=== PATIENT | male | born 1950 | race Caucasian/White ===

== ENCOUNTER 2018-06-20 13:11 | Observation (INO) ==
--- NOTE | 2018-06-20 12:53 | Anesthesia Evaluation PreOp ---
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: Other (R caroid stenosis) Other Medical History: Other (prostate ca) Anesthesia History: No Prior Anesthetic Complications, Past Anesthesia (Rohit Ing hernia repair, prostate bx) Alcohol Use: none Drug use: none Medications and Allergies Bicalutamide [Casodex] 50 mg PO DAILY 30 Days #30 tablet 05/27/18 [Rx] Hydrochlorothiazide [Microzide] 12.5 mg PO DAILY #30 capsule 06/06/18 [Rx] Allergy/AdvReac Type Severity Reaction Status Date / Time tamsulosin AdvReac Dizziness Verified 06/20/18 10:02 - Meds/Allergy Pre-op Review Medications Reviewed: Yes Allergies Reviewed: Yes Beta Blockers on Current Med List: No Anesthesia Results - Labs Laboratory Tests 06/06/18 06/06/18 15:22 15:22 WBC 4.4 Hgb 12.9 Hct 37.7 Plt Count 197 Sodium 138 Potassium 4.1 Chloride 104 Carbon Dioxide 27 BUN 22 Creatinine 1.06 Glucose 102 - Imaging EKG: report reviewed (SINUS RHYTHM RIGHT BUNDLE BRANCH BLOCK Electronically Signed On 06-17-2018 7:17:10 EST by Spenser Kaiser) Anesthesia Exam O2 Sat Height 1.73 m Weight 66.678 kg O2 Sat by Pulse Oximetry 99 Vital Signs Temp Pulse Resp BP Pulse Ox 98.4 F 76 18 127/82 99 06/20/18 13:25 06/20/18 13:25 06/20/18 13:25 06/20/18 13:25 06/20/18 13:25 Height: 1.73m Weight: 66kg NPO (# of Hours): >8 - HEENT Pupil (Motor): Pupils equal, EOMI Mallampati: II Teeth: Edentulous Denture Type: Upper: Complete Oral Opening: Greater than 3 - MARBLE MECH[employer]IC HELPER LOC: Oriented [employer]BLE MECH[employer]IC HELPER Motor: Normal RUE, Normal LUE, Normal RLE, Normal LLE, Normal Face [employer]BLE ME[employer]IC HELPER Sensory: Normal: RUE, LUE, RLE, LLE, Face - Cardiac Rhythm: Regular - Pulmonary Breath Sounds: bilateral Clear Respiratory Effort: Symmetrical Anesthesia Assess/Plan ASA Score: 3 (prostate ca, HTN) Level of consciousness: Cooperative Anesthetic Plan: General Monitoring Plan: Standard Monitors Recovery Plan: PACU
[~2018-06-20 13:11] MED LIST: Acetaminophen IV 1,000 MG/100 ML INFUS..BTL IVPB ONE
[2018-06-20] MEDS ORDERED: Ondansetron 4 MG/2 ML VIAL IVP ONE (13:52)
[2018-06-20] MEDS ORDERED: *HR* Meperidine 25 MG/ML SYRINGE IVP PRN (13:52)
[2018-06-20] MEDS ORDERED: *HR* OxyCODONE Immed Rel 5 MG TABLET PO PRN ×2 (13:52→17:55)
[2018-06-20] MEDS ORDERED: *HR* HYDROmorphone (PF) 1 MG/ML SYRINGE IVP PRN (13:52)
[2018-06-20] MEDS ORDERED: CeFAZolin Syr 2,000MG/20 ML 2,000 MG/20 ML SYRINGE IVPB ONE (13:53)
[2018-06-20] MEDS ORDERED: Ringers Solution, Lactated 1,000 ML IVC SCH (14:00)
[2018-06-20] MEDS ORDERED: Lidocaine -MPF 2% 2 ML VIAL ONE (15:31)
[2018-06-20] MEDS ORDERED: *HR* FentaNYL (PF) 100 MCG/2 ML VIAL ONE ×2 (15:31→16:54)
[2018-06-20] MEDS ORDERED: *HR* Propofol 200 MG/20 ML VIAL IVP ONE (15:31)
--- NOTE | 2018-06-20 15:36 | History & Physical Report ---
Date of Encounter: 06/20/18 Time of Encounter: 15:35 24 Hour HP Update - Instructions Instructions: If the History and Physical is less than 30 days old and was completed prior to A.M. admission and or procedure and has NOT been updated on calendar day of procedure please complete this update prior to performing procedure. - Update Patient reports changes in Medical Condition: No Changes in examination, assessment, or condition: Yes Changes in Medication: No Preop tests/diagnostics Reviewed: Yes Surgery Remains Indicated: Yes Consent for Planned Operative Procedure(s) Verified: Yes Additions to current History and Physical: Small scrotal abscess seen. We will do an incision and drainage of it. - Pre-Operative Checklist Preoperative Checklist Indicated: Yes Prophylactic Antibiotic Ordered: Yes Home Medications Include Beta Corrina: No Is VTE Prophylaxis Indicated?: Yes
[2018-06-20] MEDS ORDERED: Dexamethasone 4 MG/ML VIAL ONE (16:00)
[2018-06-20] MEDS ORDERED: Ondansetron 4 MG/2 ML VIAL ONE (16:00)
[2018-06-20] MEDS ORDERED: EPHEDrine 50 MG/ML VIAL ONE (16:04)
--- NOTE | 2018-06-20 17:19 | Operative Note ---
Date of procedure: 06/20/18 Pre-op diagnosis: Urinary retention, prostate cancer, scrotal abscess Post-op diagnosis: same Procedure: Transurethral resection of prostate Incision and drainage of scrotal abscess Implants: 24-Israeli three-way catheter Complications: None Anesthesia: MELIDA Surgeon: Nathan Monzon Was there an escrow assistant present: No Estimated blood loss (cc): 50 Specimen: prostate chips Condition: stable Disposition: PACU Procedure in Detail: INDICATIONS: Junaid is a 67 year old gentleman, who has urinary retention and prostate cancer. Today he mentioned having developed an abscess in the right hemiscrotum. He is a very elevated PSA. Staging workup was negative for metastatic disease. He has elected for radiation therapy. He wished undergo a transurethral resection of prostate to try to get out of urinary retention. He would also like to have his abscess drained. He is aware of the risks of procedure including, but not limited to, bleeding, infection, injury to other structures, need for further procedures, incomplete bladder emptying, bladder neck contracture, urethral stricture, urinary incontinence, retrograde ejaculation, erectile dysfunction, and the risk of anesthesia. He is willing to proceed. DESCRIPTION OF PROCEDURE: After informed consent was obtained, the patient was brought back to the operating room and placed in supine position. Time-out was performed. General anesthesia was then administered and a laryngeal mask airway was placed. He was then placed in lithotomy position. His genitalia were prepped and draped in usual sterile fashion. The resector sheath was then introduced using the visual obturator to the urethra. The prostate showed lateral lobe hyperplasia. There was some enlargement of the median lobe. The ureteral orifices were in the normal orthotopic position. There is no bladder tumor. There were 2+ trabeculations. The resecting loop was then introduced. The median lobe was taken down using electrocautery down to the level of the verumontanum. I then turned my attention to the left lateral lobe and this was resected away. Attention was then turned to the right lobe and this was resected away. I did perform a small amount of resection anteriorly as well. Once adequate resection was achieved, I then achieved hemostasis with electrocautery. At the distal aspect of the prostate along the left side near the verumontanum there appeared to be an extensive area of prostate cancer. There was papillary growth which expressed out of the area of resection. This was difficult to cauterize given the papillary nature. I did insert the button electrode and liberally cauterized this area. Hemostasis seemed to be adequate, but the resection bed still was somewhat oozy. I irrigated out the TURP chips. I then confirmed hemostasis again using the button. Once hemostasis was adequate, I removed the scope. The verumontanum and ureteral orifices were free of injury and left intact. A 24-Israeli three-way catheter was then placed, 45 mL was instilled in the balloon. The catheter was left on mild traction. Fast continuous bladder irrigation was started. I then applied new gloves and made an incision in the right hemiscrotum where the abscess was. There was a minimal amount of pus. The wound was packed with a quarter inch packing strip. The patient was then awakened from general anesthesia, brought to recovery room in good condition. All sponge, needle, and instrument counts were correct.
--- NOTE | 2018-06-20 17:42 | Anesthesia Evaluation Post Op ---
Date of Encounter: 06/20/18 Time of Encounter: 17:40 - Vital Signs Vital Signs: Vital Signs/O2 Sat, Most Current Temp Pulse Resp BP Pulse Ox 97.9 F 77 14 139/90 98 06/20/18 17:13 06/20/18 17:33 06/20/18 17:33 06/20/18 17:33 06/20/18 17:33 - Lungs Lungs: Clear Ascult./Percussion - Airway Airway: Non-obstructed, Obstructed - Cardiovascular Regular Rate, Baseline Rhythm - Mental Status Mental Status: Alert & Oriented, Answers Appropriately - Pain Pain Scale: 0 Pain Scale used: Numeric (1 - 10) - Nausea Vomiting Nausea Vomiting: Not Present - Hydration Hydration: Tolerates oral liquids, Pena catheter - Discharge PostOp Status: Transfer Patient to floor
[2018-06-20] MEDS ORDERED: OXYCODONE Oral CONC 10 MG/0.5 ML ORAL.SYG SL PRN (17:55)
[2018-06-20] MEDS ORDERED: Ondansetron 4 MG/2 ML VIAL IVP PRN (17:55)
[2018-06-20] MEDS ORDERED: Acetaminophen 325 MG TABLET PO PRN (17:55)
[2018-06-20] MEDS ORDERED: Naloxone 0.4 MG/ML INJ IVP PRN (17:55)
[2018-06-20] MEDS: 0.9 % Sodium Chloride 1,000 ML IVC SCH (22:45)
[2018-06-21 05:53] LABS: Basophils % 0.1 %; Hematocrit 34.8 % (37.5-50.1); Hemoglobin 11.9 g/dL (12.9-16.9); Immature Granulocytes % 0.2 % (0-4); Lymphocytes # 1.3 K/mcL (0.6-4.6); Mean Corpuscular HGB Conc 34.2 g/dL (31.6-35.5); Mean Corpuscular Hemoglobin 32.3 pg (28.0-33.3); Mean Corpuscular Volume 94.6 fL (83.0-100.0); Mean Platelet Volume 10.5 fL (9.4-12.4); Monocytes # 0.7 K/mcL (0.0-1.3); Monocytes % 8.2 %; Neutrophils # 6.9 K/mcL (1.6-8.9); Platelet Count 233 K/mcL (140-400); Red Blood Count 3.68 M/mcL (4.19-5.50); Red Cell Distribution Width 12.7 % (11.5-14.5); Segmented Neutrophils % 76.5 %
[2018-06-21] MEDS: 0.9 % Sodium Chloride 1,000 ML IVC SCH ×3 (06:02→18:29)
[2018-06-21] MEDS ORDERED: *HR* HYDROcodone/Acet 5/325 mg TABLET PO PRN (07:50)
[2018-06-21] MEDS: hydroCHLOROthiazide 25 MG TABLET PO SCH (08:18)
--- NOTE | 2018-06-21 08:56 | Urology Progress Note ---
Addendum entered and electronically signed by Nathan Monzon MD 06/21/18 10:07: The patient was seen and examined with the physician's assistant infant toddler teacher. I agree with the assessment and plan. Urine is somewhat bloody today. He was still on fairly fast to moderate CBI this morning. We will slowly wean down CBI. I anticipate he will remain in the hospital today. Hopefully, the urine will be clear enough for discharge tomorrow. We will consider hospitalist consult for his headaches. Original Note: Date of Encounter: 06/21/18 Time of Encounter: 08:54 - Assessment and Plan (1) Scrotal abscess Current Visit: Yes Status: Acute (2) Acute urinary retention Current Visit: No Status: Acute Assessment and plan: Patient is a 67-year-old male who is one day status post transurethral resection of prostate and incision and drainage of scrotal abscess. Vital signs are stable and afebrile. Hemoglobin is reassuring. Patient is recovering well. We will continue to monitor urine, as it is still bloody on CBI. Scrotal packing was removed, and wound is healed well enough to not accommodate additional packing. Patient's is requesting neurology consultation or referral for patient's persistent headache. I will discuss this with Dr. Monzon, who will evaluate the patient later today. (3) Prostate cancer Current Visit: Yes Status: Acute Progress Note Narrative: POD #1. Patient seen and examined sitting upright in bed eating breakfast in no apparent distress. Patient's at bedside. Patient states pain is well- controlled at present. Patient states headache is improved. Pena catheter is indwelling with CBI and draining transparent fruit punch urine into bedside bag. Objective Initial Vital Signs Temp Pulse Resp BP Pulse Ox 98.4 F 76 18 127/82 99 06/20/18 13:25 06/20/18 13:25 06/20/18 13:25 06/20/18 13:25 06/20/18 13:25 - General physical appearance Present: well developed, well nourished, no distress, no pain - Respiratory Present: normal expansion, normal respiratory effort - Abdomen Present: soft, non tender - Genitourinary Present: normal penis with no external lesions scrotal wound: right (Scrotal wound clean, dry, intact) Urine Appearance: Present: Hematuria (Transparent fruit punch) - Integumentary Present: no rash, no abnormal pigmentation - Musculoskeletal Present: normal posture - Psychiatric Present: oriented to time, oriented to person, oriented to place, speech is normal, memory intact - Labs 06/21/18 04:38 Consult Discharge Plan - Plan Referrals: Nel Escoto CNP [Primary Care Provider] -
--- NOTE | 2018-06-21 10:52 | Internal Medicine Consult Note ---
Date of Encounter: 06/21/18 Time of Encounter: 10:47 - Assessment and plan (1) Headache Current Visit: Yes Status: Chronic Assessment and plan: Possible migraine headache based on patient description. Will obtain a Head CT w/o contrast to r/o any intra-cranial abnormalities on this patient with Hx of Prostate CA. continue Tylenol 650 mg by mouth every 6 hours when necessary for pain. Qualifiers: Headache type: unspecified Headache chronicity pattern: chronic headache Intractability: not intractable Qualified Code(s): R51 - Headache (2) Prostate cancer Current Visit: Yes Status: Acute Assessment and plan: status post transurethral resection of prostate. plan of care as per primary team. (3) Scrotal abscess Current Visit: Yes Status: Acute Assessment and plan: plan of care as per primary team. (4) Acute urinary retention Current Visit: No Status: Acute Assessment and plan: plan of care as per primary team. - Time Spent With Patient Total time spent is greater than 50% in coordination of care (as documented) at patient's floor/unit and/or counseling patient: Greater than 35 minutes (40) Internal Medicine - CN: HPI - Data of Consult Patient: new to practice Requesting Physician: Nathan Monzon, - Consult Narrative Reason for consult: Headache History of present illness: Mr. Junior is a 67 year old male PMH of prostate CA s/p transurethral resection of prostate and incision and drainage of scrotal abscess, and HTN. Urology requested a consult due to patient complaining of headache. 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 He reports having a left temporal headache yesterday night lasting most of the night radiating to the left side of his neck. Denies lacrimation, nausea, vomiting or visual auras. He also denies increase frequency or intensity of this headache. Reports the headache are alleviated by a natural product which has caffeine in it. Denies focal neurological abnormalities associated with the headache. Past Med Surg Social Fam HX - Past Medical History Medical history: cancer, hyperlipidemia, hypertension, other Additional medical history: prostate cancer, right inguinal hernia Psychiatric history: no psych history - Past Surgical History Surgical History: other Additional surgical history: right and left hernia repair - Social History Smoking Status: Never smoker Smokeless Tobacco Status: No Alcohol use: none Drug use: none - Family History Mother Hx Family Cancer: Yes (bone cancer) - Constitutional Constitutional: no anorexia, no chills, no fever(s) - EENT Nose, mouth and throat: no bleeding gums, no change in voice - Cardiovascular Cardiovascular ROS IM: no chest pain, no dyspnea on exertion, no irregular heart rhythm, no lightheadedness, no orthopnea, no palpitations, no paroxysmal nocturnal dyspnea - Respiratory Respiratory: no cough, no wheezing, no snoring - Gastrointestinal Gastrointestinal: no abdominal pain, no melena, no nausea - Genitourinary Genitourinary ROS male: dysuria, scrotal swelling, no flank pain, no nocturia - Musculoskeletal Musculoskeletal ROS IM: no arthralgias, no atrophy - Integumentary Integumentary IM: no rash - Neurological Neurological ROS: headache(s), no lack of coordination, no memory loss, no numbness, no tremor(s), no vertigo, no weakness - Psychiatric Psychiatric: no homicidal ideation, no hopelessness - Endocrine Endocrine IM: no cold intolerance - Hematologic/Lymphatic Hematologic/Lymphatic: no lymphadenopathy - Allergic/Immunologic Allergic/Immunologic: no GI upset with certain foods Internal Medicine - CN: Meds Bicalutamide [Casodex] 50 mg PO DAILY 30 Days #30 tablet 05/27/18 [Rx] Hydrochlorothiazide [Microzide] 12.5 mg PO DAILY #30 capsule 06/06/18 [Rx] Allergy/AdvReac Type Severity Reaction Status Date / Time tamsulosin AdvReac Dizziness Verified 06/20/18 10:02 Hospitalist - CN: Exam - Constitutional Vitals: Temp Pulse Resp BP Pulse Ox 97.5 F L 69 16 147/84 99 06/21/18 06:51 06/21/18 06:51 06/21/18 06:51 06/21/18 06:51 06/21/18 06:51 Exam: General: Patient is alert, oriented x4. no acute distress. Head: atraumatic, normocephalic, Eye: normal appearance, PERRL, no scleral icterus, no conjunctival injection ENT: mucous membranes moist, normal external ear exam Neck: normal inspection, trachea midline, full ROM, no carotid bruits Respiratory: Good respiratory effort. Bilateral breath sounds clear to auscultation. No wheezing, rales or crackles. Cardiovascular: RRR, normal s1 and s2 No clicks, rubs, gallops, or murmors. Abdomen: Bowel sounds present normoactive x-4 quadrants. Abdomen is soft, nondistended. No guarding or rebound. No organomegaly noted. Musculoskeletal: Spontaneously moving all extremities. no edema, no calf tenderness Skin: warm, dry, intact. Neuro: Sensation light touch intact. Cranial nerves 2-12 is intact. Not aphasic, rapid hand movements intact, [id number] intact, Psych: Patient's affect is normal - Head Head exam: Present: atraumatic, normal inspection, normocephalic - Expanded Head Exam Head exam expanded IM: Absent: laceration, tenderness of temporal artery - Eye Eye exam: Present: EOMI, normal appearance, PERRL, sclera anicteric Pupils: Present: PERRL - ENT ENT exam: Present: mucous membranes moist - Neck Neck exam general surgery: Present: full ROM. Absent: lymphadenopathy - Expanded Neck Exam Neck exam: Absent: carotid bruit - Respiratory Respiratory exam: Present: CTAB. Absent: accessory muscle use, rales, rhonchi, wheezes - Cardiovascular Cardiovascular exam IM: Present: RRR, +S1, +S2. Absent: clicks, +S3, systolic murmur - GI/Abdominal GI/Abdominal exam IM: Present: normal bowel sounds, soft. Absent: distended, guarding - External exam: Present: normal external exam - Extremities Exam Extremities exam IM: Present: full ROM - Back Exam Back exam: Present: normal inspection - Neurological Exam Neurological exam: Present: CN II-XII intact, oriented X3, no focal deficits - Psychiatric Psychiatric exam: Absent: anxious, depressed - Skin Skin exam IM: Absent: abrasion Internal Medicine - CN: Reslt - Labs CBC & Chem 7: 06/21/18 04:38 Labs: Short CBC 06/21/18 Range/Units 04:38 WBC 9.0 (4.3-11.1) K/mcL Hgb 11.9 L (12.9-16.9) g/dL Hct 34.8 L (37.5-50.1) % Plt Count 233 (140-400) K/mcL Neutrophils # 6.9 (1.6-8.9) K/mcL Consult Discharge Plan - Plan Referrals: Nel Escoto, CONTRERAS [Primary Care Provider] -
[2018-06-21 12:59] LABS: BUN/Creatinine Ratio 21 (6-26); Blood Urea Nitrogen 20 mg/dL (8-23); Carbon Dioxide 30 mEq/L (23-29); Chloride 106 mEq/L (98-107); Glucose 110 mg/dL (70-105); Osmolality,Calculated 293 (280-300); Potassium 3.6 mEq/L (3.5-5.1); Sodium 140 mEq/L (136-145); eGFR For Non-African Americans > 60 (> 60)
[2018-06-22] MEDS: 0.9 % Sodium Chloride 1,000 ML IVC SCH (03:24)
[2018-06-22 07:37] VITALS: BP 161/88
[2018-06-22] MEDS: hydroCHLOROthiazide 25 MG TABLET PO SCH (08:19)
--- NOTE | 2018-06-22 09:51 | Discharge Summary ---
Orders not resulted at time of discharge: Pending orders 06/20/18 16:42 Surgical Pathology [PTH] Routine Date of Encounter: 06/22/18 Time of Encounter: 09:51 - Discharge Diagnosis (1) Acute urinary retention Priority: Primary Status: Acute Comments: Status post TURP. Urine clearing. Ready for discharge today. - Hospital Course Hospital course: Mr. Junior is a 67 year old male status post TURP for potentially advanced prostate cancer. Some hematuria issues following the procedure but now improved. Urine has cleared off CBI. Plan to discharge today with Pena catheter in place - Time Spent with Patient Total time spent providing and/or coordinating discharge services: Labs on day of discharge: Labs from last 24 hours 06/21/18 12:05 Sodium 140 Potassium 3.6 Chloride 106 Carbon Dioxide 30 H BUN 20 Creatinine 0.94 Est GFR ( Amer) > 60 Est GFR (Non-Af Amer) > 60 BUN/Creatinine Ratio 21 Glucose 110 H Calculated Osmolality 293 Calcium 9.0 - Impressions ITS Impressions Head CT 06/21/18 12:15 IMPRESSION: No acute intracranial abnormality. Stable moderate chronic small vessel ischemic disease within the periventricular white matter. D/ / 06/21/2018 14:41:31 Kayode Hagan MD / merary Interpreting Provider: Kayode Hagan MD - Discharge Medications Prescriptions: HYDROcodone/Acet 5/325 mg [[place] 5-325 mg] 1 tab PO Q6HR PRN 5 Days #15 tablet PRN Reason: Pain Bicalutamide [Casodex] 50 mg PO DAILY 30 Days #30 tablet cephALEXin [Keflex] 500 mg PO BID #20 capsule Docusate [Colace] 100 mg PO BID #60 capsule Home Medications: Hydrochlorothiazide [Microzide] 12.5 mg PO DAILY #30 capsule 06/06/18 [Rx] Bicalutamide [Casodex] 50 mg PO DAILY 30 Days #30 tablet 06/22/18 [Rx] Docusate [Colace] 100 mg PO BID #60 capsule 06/22/18 [Rx] HYDROcodone/Acet 5/325 mg [[place] 5-325 mg] 1 tab PO Q6HR PRN 5 Days #15 tablet 06/22/18 [Rx] cephALEXin [Keflex] 500 mg PO BID #20 capsule 06/22/18 [Rx] Allergies/Adverse Reactions: Allergy/AdvReac Type Severity Reaction Status Date / Time tamsulosin AdvReac Dizziness Verified 06/20/18 10:02 Date of admission: 06/21/18 12:34 Primary care physician: Nel Escoto CNP Consults: 06/21/18 10:13 Consult to Hospitalist [CONS] Routine Consulting Provider: Hospitalist Mukund Reason for Consult: medical management, persistent headache per patient request Time Notified: 10:14 Call Completed: Yes Discharging clinician: Diego Silva Anticipated date of discharge: 06/22/18 Exam Initial Vital Signs Temp Pulse Resp BP Pulse Ox 98.4 F 76 18 127/82 99 06/20/18 13:25 06/20/18 13:25 06/20/18 13:25 06/20/18 13:25 06/20/18 13:25 - General physical appearance Present: well developed, no distress - Additional Findings Urine very light hematuria off CBI Small scrotal abscess without packing and no new purulence - Patient Status Disposition: Home, Self-Care Condition: Good Functional capacity at discharge: independent ambulation Overall status at discharge: patient is progressing back to baseline - Discharge Instructions Follow Up With: Nel Escoto CNP [Primary Care Provider] - 07/02/18 (Office said patient can arrive any time on 07/02/18. ) Nathan Monzon MD [Partnered Physician] - (Patient is already scheduled for follow-up.) Additional Instructions: Discharge with Pena catheter in place. Placed plug on third port. Provide leg bag and bedside bag I instructed the patient that it is normal to see increasing blood in the tubing when he leaves the hospital. Main reason to go to the emergency room would be if the catheter stops draining. Avoid any heavy lifting, heavy activity or straining. Use stool softeners are prone to constipation. Avoid any NSAIDs or aspirin Drink plenty of water - Diet and Activity Activity: other Diet: advance to your usual diet
--- NOTE | 2018-06-22 11:01 | Event Note ---
Date of Encounter: 06/22/18 Time of Encounter: 11:01 67-year-old male who is one day status post transurethral resection of prostate and incision and drainage of scrotal abscess. Hospital medicine was consulted for headache Vital signs are stable and afebrile, patient was discharged by primary team prior to evaluation today Follow up with PCP
== END 2018-06-22 11:51 | disposition home or self-care (01) ==
LOC: 3BNU 13:11 → SAMDAY 13:11 → 3BNU 17:51
PROVIDERS: ADMIT Urology; ATTEND Urology
PROC: UROTURP (2018-06-20 15:55)